=== PATIENT | male | born 1980 | race African-American/Black ===

== ENCOUNTER 2023-05-27 10:33 | Outpatient (AMB) | payer MEDICARE, MEDICAID, SELFPAY ==
[2023-05-27 10:58] VITALS: BP 140/88; PULSE 73; O2SAT 98; BMI 31.6
--- NOTE | 2023-05-27 10:58 | A.OFFPC_ITS ---
Vital Signs 05/27/23 10:58 Height 5 ft 4 in Weight 184 lb BMI 31.6 BP 140/88 H Blood Pressure Location Rt brachial Position Sitting Pulse 73 Pulse Source Pulse Oximeter Pulse Oximetry (%) 98 Oxygen Delivery Method Room Air Intake Visit Reasons: Est. Care Allergies No Known Allergies Allergy (Verified 05/27/23 11:09) Medication List - Last Reconciled 05/27/23 by GAVINO Patton olanzapine 15 mg PO BEDTIME Tobacco use date assessed: 05/27/23 Dental Screening Dental Screen Date: 05/27/23 Did you have a dental visit in the last 12 months?: No Did you have a dental problem in the last 6 months where you did not have access to dental care?: No Was dental information given to patient?: No HPI HPI Comments History of Present Illness Details Patient is a 42-year-old male who I am meeting for the 1st time. Patient states that he has not had a primary care provider in several years. He does have a psychiatric provider for bipolar disorder. The appointment today the patient is mildly hypertensive. Patient does not want medication at this time, would like to try to alter his diet and start exercising. Patient denies symptoms of headache, dizziness, nausea, vomiting, diarrhea, numbness. Will draw labs. PFSH Family History Mother Mental health disorder Diabetes type 2, controlled Social History (Updated 05/27/23 @ 11:11 by GAVINO Patton) Alcohol intake: current Comment: 4 beers per week Patient Tobacco Use Status: Former Tobacco user Tobacco use type: Cigar e-Cigarette/Vaping Use: Never Used service: No Current occupational status: disabled Current occupational exposures/hazards: No Cognitive needs: No Hearing needs: No Vision needs: No Questionnaire PHQ-9 Over the last 2 weeks, how often have you been bothered by any of the following problems? 1. Little interest or pleasure in doing things: not at all 2. Feeling down, depressed, or hopeless: several days 3. Trouble falling or staying asleep, or sleeping too much: not at all 4. Feeling tired or having little energy: not at all 5. Poor appetite or overeating: not at all 6. Feeling bad about yourself - or that you are a failure or have let yourself or your family down: not at all 7. Trouble concentrating on things, such as reading the newspaper or watching television: not at all 8. Moving or speaking so slowly that other people could have noticed. Or the opposite - being so fidgety or restless that you have been moving around a lot more than usual: not at all 9. Thoughts that you would be better off or of hurting yourself in some way: not at all Total score: 1 Depression Screening Interpretation: Negative Depression Screening Done: Yes 49057 - PHQ-9 Billing: Yes Source: Developed by Drs. Addison Ham, Emerald Arreola, Ray Varela and colleagues, with an educational osbaldo from [employer]. Thrive Questionnaire Date Thrive assessed: 05/27/23 I am a: Patient What is your living situation today?: I have a steady place to live Within the past 12 months, did the food you bought not last and you didn't have the money to get more?: Never true Within the past 12 months, did you worry whether your food would run out before you got money to buy more?: Never true Do you have trouble paying for medicines?: No Do you have trouble getting transportation to medical appointments?: No Do you have trouble paying your heating and electricity bill?: No Do you have trouble taking care of your child, family member or friend?: No Do you have trouble with day-to-day activities such as bathing, preparing meals, shopping, managing finances, etc.?: No Are you currently unemployed and looking for a job?: Yes Are you interested in more education?: No Please select the resources that you would like help with: Job search/training THRIVE Score: 0 AUDIT C Alcohol Use Questionnaire (AUDIT-C) 1. How often do you have a drink containing alcohol?: 2-3 times a week 2. How many drinks containing alcohol do you have on a typical day when you are drinking?: 1 or 2 3. How often do you have six or more drinks on one occasion?: Never Total Score: 3 SYED-7 AMB Questionnaire SYED-7 Date SYED - 7 assessed: 05/27/23 Feeling nervous, anxious, or on edge: 0 = Not at all Not being able to stop or control worryin = Not at all Worrying too much about different things: 0 = Not at all Trouble relaxin = Not at all Being so restless that it is hard to sit still: 0 = Not at all Becoming easily annoyed or irritable: 0 = Not at all Feeling afraid as if something awful might happen: 0 = Not at all Total SYED-7 score (0-4 normal; 5-9 mild; 10-14 moderate; 15-21 severe): 0 Source: Developed by Drs. Addison Ham, Emerald Arreola, Ray Varela and colleagues, with an educational osbaldo from [employer]. SYED-7 Assessment Billing SYED-7 Assessment Tool: SYED-7 Assessment 73791 Review of Systems Const All systems reviewed & are unremarkable except as noted in HPI and below Denies headache(s) Eyes Denies blurry vision ENT Denies vertigo, Denies dizziness and Denies headache(s) Musc Denies numbness and Denies tingling Neuro Denies vertigo, Denies dizziness, Denies headache(s), Denies numbness and Denies tingling Psych Denies anxiety, Denies mood swings, Denies homicidal ideation and Denies suicidal ideation Physical exam (Primary Care) Vital Signs: Last Vital Signs Pulse 73 05/27/23 10:58 BP 140/88 H 05/27/23 10:58 Pulse Ox 98 05/27/23 10:58 Oxygen Delivery Method Room Air 05/27/23 10:58 Care Plan Goal for BP management: Patient will take blood pressure measurements at home. BMI result Body Mass Index 31.6 Tobacco/Smoking Status: Tobacco use Status Tobacco use date assessed 05/27/23 05/27/23 11:03 Patient Tobacco Use Status Former Tobacco user 05/27/23 11:03 Tobacco use type Cigar 05/27/23 11:03 e-Cigarette/Vaping Use Never Used 05/27/23 11:03 Depression Screening Interpretation: Negative Thrive Assessment: Date of Thrive Assessment Date Thrive assessed 05/27/23 05/27/23 11:05 Const Other: Appearance: Alert.? Oriented X3.? No acute distress.? Head: Normocephalic, atraumatic, no step-offs or deformities Neck: Normal inspection.? Neck supple.? CVS: Normal heart rate and rhythm.? Pulses normal.? Respiratory: No respiratory distress.? Breath sounds normal.? Neuro: Oriented X 3.? No motor deficit.? No sensory deficit. CN 2-12 intact Assessment and Plan Assessment & Plan (1) Hypertension: Comment: Patient will take blood pressure measurements at home. Patient will try to improve diet and exercise Code(s): I10 - Essential (primary) hypertension Qualifiers: Hypertension type: primary hypertension Qualified Code(s): I10 - Essential (primary) hypertension (2) Bipolar 1 disorder, manic, mild: Comment: Patient is seeing a psychiatric provider that provides medication, olanzapine, for bipolar disorder. Patient states it feels like it is in control. He has community resources in case he has episodes of maria l or and is in crisis Code(s): F31.11 - Bipolar disorder, current episode manic without psychotic features, mild Plan: Take your medications as prescribed. If you were prescribed antibiotics today, it is important that you take your medication to their entirety, do not skip any doses, do not finish them early. Follow-up with your primary care provider this week. Return to the emergency department with new or worsening symptoms. Such as fevers, chills, chest pain, shortness of breath, nausea, vomiting, dizziness, headache, vision changes, lethargy In case of emergency call 911 Plan Follow-up physical exam 3 months. Orders: Orders Vitamin D 25-OH (D2 and D3) Today Z13.21 - Encounter for screening for nutritional disorder UA CC w/rflx Micro + Cult Today Z13.89 - Encounter for screening for other disorder TSH reflex Free T4 Today Z13.29 - Encounter for screening for other suspected endocrine disorder Comprehensive Met. Panel Today I10 - Essential (primary) hypertension Vitamin B6 Today Z13.21 - Encounter for screening for nutritional disorder Lipid Panel Today Z13.220 - Encounter for screening for lipoid disorders Complete Blood Count Auto Diff Today Z13.0 - Encounter for screening for diseases of the blood and blood-forming organs and certain disorders involving the immune mechanism PSA,Total (Free>4and<10) Today Z12.5 - Encounter for screening for malignant neoplasm of prostate Coding Level of Care Code Est Pt Level 3 (67111) Diagnoses Primary hypertension I10 Hypertension type: primary hypertension Bipolar 1 disorder, manic, mild F31.11 Additional Codes SYED-7 Assessment Billing - SYED-7 Assessment Tool: SYED-7 Assessment 12141 ([id number]) Time Spent (min) 22
== END 2023-05-27 14:43 | disposition home or self-care (01) ==
PROVIDERS: PCP Nurse Practitioner Family; Visit Provider Nurse Practitioner Primary Care
DX: I10 Essential (primary) hypertension (principal); F31.11 Bipolar disorder, current episode manic without psychotic features, mild
CPT/HCPCS: 99213

== ENCOUNTER 2023-06-19 09:24 | Outpatient (REF) | payer MEDICARE, MEDICAID, SELFPAY ==
[2023-06-19 10:20] LABS: MANUAL DIFF FLAG NO
[2023-06-19 10:30] LABS: Basophils Percent Auto 0.6 % (0-2); Eosinophils Absolute Auto 0.3 X10*3/uL (0.0-0.4); Eosinophils Percent Auto 4.7 % (0-4); Hematocrit 42.9 % (42.0-52.0); Hemoglobin 14.5 g/dl (14.0-18.0); Imm Gran Abs Auto 0.03 X10*3/uL (0.00-0.03); Imm Gran Pct Auto 0.5 % (0.0-0.4); Lymphocytes Absolute Auto 2.1 X10*3/uL (1.2-4.9); Lymphocytes Percent Auto 32.3 % (20-40); Mean Corpuscular HGB Conc 33.8 g/dl (31.0-36.0); Mean Corpuscular Hemoglobin 31.5 pg (27.0-33.0); Mean Corpuscular Volume 93.1 fL (80.0-98.0); Mean Platelet Volume 10.7 fL (9.4-12.4); Monocytes Absolute Auto 0.5 X10*3/uL (0.1-1.2); Monocytes Percent Auto 7.4 % (2-11); Neutrophils Absolute Auto 3.5 x10*3/uL (2.0-8.3); Neutrophils Percent Auto 54.5 % (45-73); Platelet Count 221 X10*3/uL (160-400); Red Blood Count 4.61 X10*6/uL (4.60-5.80); White Blood Count 6.3 X10*3/uL (4.8-10.8)
[2023-06-19 11:17] LABS: Alanine Aminotransferase 65 U/L (0-40); Albumin Level 4.4 g/dL (3.5-5.0); Anion Gap 11 (12-20); Aspartate Amino Transferase 36 U/L (5-37); Bilirubin Total 0.5 mg/dL (0.0-1.0); Blood Urea Nitrogen 7 mg/dL (9-16); Calcium 9.2 mg/dL (8.4-10.2); Carbon Dioxide 29 mmol/L (22-29); Chloride 104 mmol/L (96-108); Cholesterol 196 mg/dL (<200); Estimated Glomerular Filt Rate > 60; Glucose Random 123 mg/dL (60-115); HDL Cholesterol 46 mg/dL (>40); LDL Cholesterol Calculated 125 mg/dL (<100); Potassium 3.9 mmol/L (3.3-5.1); Sodium 140 mmol/L (135-145); Total Protein 7.6 g/dL (6.5-8.0); Triglycerides 125 mg/dL (<150)
[2023-06-19 11:18] LABS: PSA,Total (Free>4and<10) 0.27 ng/mL (0.00-4.00)
[2023-06-19 11:21] LABS: TSH reflex Free T4 1.45 uIU/mL (0.32-4.0)
[2023-06-19 11:36] LABS: Alkaline Phosphatase 63 U/L (39-117)
[2023-06-19 13:32] LABS: Appearance Urine Clear; Color Urine Yellow; Glucose Urine UA Negative (Negative); Leukocyte Esterase Urine Negative (Negative); Nitrite Urine Negative (Negative); Specific Gravity - Urine 1.015 (1.005-1.025); Urine Blood Negative (Negative); Urine Ketones Negative (Negative); Urine Protein Negative (Neg-Trace)
[2023-06-23 15:18] LABS: Vitamin D 25-OH, D2 <4 ng/mL; Vitamin D 25-OH, D3 8 ng/mL; Vitamin D 25-OH, Total 8 ng/mL (30-100)
== END 2023-06-19 09:25 | disposition home or self-care (01) ==
LOC: HO.HMGCLDS 09:24
PROVIDERS: PCP Nurse Practitioner Primary Care; Visit Provider Nurse Practitioner Primary Care
DX: Z12.5 Encounter for screening for malignant neoplasm of prostate (principal); Z13.89 Encounter for screening for other disorder; Z13.29 Encounter for screening for other suspected endocrine disorder; Z13.21 Encounter for screening for nutritional disorder; Z13.0 Encounter for screening for diseases of the blood and blood-forming organs and certain disorders involving the immune mechanism; Z13.220 Encounter for screening for lipoid disorders; I10 Essential (primary) hypertension
CPT/HCPCS: 36415; 80053; 80061; 81003; 82306; 84153; 84207; 84443; 85025

== ENCOUNTER 2023-06-26 11:15 | Outpatient (REF) | payer MEDICARE, MEDICAID, SELFPAY ==
[2023-06-26 14:06] LABS: Estimated Average Glucose 114 mg/dL; Hemoglobin A1c % 5.6 % (<6.0)
== END 2023-06-26 11:16 | disposition home or self-care (01) ==
LOC: HO.HMGCLDS 11:15
PROVIDERS: PCP Nurse Practitioner Primary Care; Visit Provider Nurse Practitioner Primary Care
DX: Z13.1 Encounter for screening for diabetes mellitus (principal)
CPT/HCPCS: 36415; 83036

== ENCOUNTER 2023-08-28 10:40 | Outpatient (AMB) | payer MEDICARE, MEDICAID, SELFPAY ==
--- NOTE | 2023-08-28 10:46 | A.OFFPC_ITS ---
Vital Signs 08/28/23 10:50 Height 5 ft 4 in Weight 181 lb BMI 31.1 BP 158/110 H Blood Pressure Location Lt brachial Position Sitting Pulse 89 Pulse Source Pulse Oximeter Pulse Oximetry (%) 97 Oxygen Delivery Method Room Air Intake Visit Reasons: Annual PE Intake Note: pt is here for annual PE. Allergies No Known Allergies Allergy (Verified 08/28/23 11:17) Medication List - Last Reconciled 08/28/23 by GAVINO Patton blood pressure monitor (Blood Pressure Kit) As directed olanzapine 15 mg PO BEDTIME Tobacco use date assessed: 08/28/23 Dental Screening Dental Screen Date: 08/28/23 HPI HPI Comments History of Present Illness Details Patient is a 43-year-old male in today for physical exam. Patient is up-to-date with PSA drawn. He does not know when his last Tdap immunization was, will try to obtain records from previous provider. He has a past medical history significant for: Hypertension: Patient will be started on losartan 25 mg p.o. daily. He will be ordered a blood pressure cuff to take measurements at home and record them. He will follow-up for blood pressure recheck in 2 weeks with nurse navigator. He denies any symptoms of dizziness, headache, chest pain, shortness a breath, nausea, vomiting, diarrhea. Bipolar disorder: Patient has establish care with Psychiatry, is currently utilizing olanzapine 50 mg p.o. at bedtime with good effect. Vitamin-D deficiency: Patient was asked to start 2000 units vitamin D3 per day 2 months prior. Patient will redraw today. Hyperlipidemia: Patient has started exercising, improving diet, is been taking fish oil supplement. PFSH Surgical History No pertinent past surgical history Family History Mother Mental health disorder Diabetes type 2, controlled Social History Alcohol intake: current Comment: 4 beers per week Patient Tobacco Use Status: Former Tobacco user Tobacco use type: Cigar e-Cigarette/Vaping Use: Never Used service: No Current occupational status: disabled Current occupational exposures/hazards: No Cognitive needs: No Hearing needs: No Vision needs: No Questionnaire Thrive Questionnaire Date Thrive assessed: 05/27/23 SYED-7 AMB Questionnaire SYED-7 Date SYED - 7 assessed: 05/27/23 Source: Developed by Drs. Addison Ham, Emerald Arreola, Ray Varela and colleagues, with an educational osbaldo from [employer]. Review of Systems Const All systems reviewed & are unremarkable except as noted in HPI and below Physical exam (Primary Care) Vital Signs: Last Vital Signs Pulse 89 08/28/23 10:50 BP 158/110 H 08/28/23 10:50 Pulse Ox 97 08/28/23 10:50 Oxygen Delivery Method Room Air 08/28/23 10:50 Care Plan Goal for BP management: Patient started on losartan 25 mg p.o. daily. Next steps: Follow-up in 2 weeks with nurse navigator for BP recheck BMI result Body Mass Index 31.1 Tobacco/Smoking Status: Tobacco use Status Tobacco use date assessed 08/28/23 08/28/23 10:49 Patient Tobacco Use Status Former Tobacco user 08/28/23 10:47 Tobacco use type Cigar 08/28/23 10:47 e-Cigarette/Vaping Use Never Used 08/28/23 10:47 Thrive Assessment: Date of Thrive Assessment Date Thrive assessed 05/27/23 08/28/23 10:47 Const Other: Appearance: Alert.? Oriented X3.? No acute distress.? Head: Normocephalic, atraumatic, no step-offs or deformities Eyes: Pupils equal, round and reactive to light.? ENT: Pharynx normal.?TM intact and pearly valdovinos, Neck: Normal inspection.? Neck supple.? CVS: Normal heart rate and rhythm.? Pulses normal.?S1 and S2. Respiratory: No respiratory distress.? Breath sounds normal.? Abdomen: Soft and nontender.? Skin: Skin warm and dry.? Normal skin color.? Normal skin turgor.? Extremities: No lower extremity edema.? No calf ttp. 5/5 strength to bilateral upper and lower extremities Back: No midline tenderness, no C-spine tenderness, full range of motion, no CVA tenderness bilaterally Neuro: Oriented X 3.? No motor deficit.? No sensory deficit. CN 2-12 intact Results Reviewed Results Reviewed: Sodium 140 135-145 mmol/L Potassium 3.9 3.3-5.1 mmol/L CL 104 96-108 mmol/L CO2 29 22-29 mmol/L Gap 11 L 12-20 BUN 7 L 9-16 mg/dL Creat 0.99 0.5-1.4 mg/dL EGFR > 60 NOTE: For -[place] individuals, multiply the result by 1.210. Chronic Kidney Disease: Estimated GFR < 60 mL/min/1.73m2 Severe Kidney Disease: Estimated GFR < 15 mL/mi n/1.73m2 Glucose, Random 123 H 60-115 mg/dL CA 9.2 8.4-10.2 mg/dL Total Bili 0.5 0.0-1.0 mg/dL AST (GOT) 36 5-37 U/L ALT (GPT) 65 H 0-40 U/L Protein, Total 7.6 6.5-8.0 g/dL Alb 4.4 3.5-5.0 g/dL Triglyceride 125 <150 mg/dL Desirable Triglyceride: less than 150 mg/dL Borderline High Triglyceride 150-199 mg/dL High Triglyceride: 200-499 mg/dL Very High Triglyceride: greater than or equal to 5OO mg/dL Cholesterol 196 <200 mg/dL Desirable Cholesterol: less than 200 mg/dL Borderline High Cholesterol: 200-239 mg/dL High Cholesterol: greater than 239 mg/dL LDL Calculated 125 H <100 mg/dL Desirable LDL: less than 100 mg/dL Near Optimal/Above Optimal LDL: 110-129 mg/dL Borderline High LDL: 130-159 mg/dL High LDL: 160-189 mg/dL Very High LDL: greater than or equal to 190 mg/dL HDL 46 >40 mg/dL Desirable HDL: greater than 40 mg/dL Note: This HDL assay may give artificially low results in patients with liver disease. Alk Phos 63 39-117 U/L TSH 1.45 0.32-4.0 uIU/mL Assessment and Plan Assessment & Plan (1) Physical exam: Comment: Patient is up-to-date with PSA drawn. He does not know when his last Tdap immunization was, will try to obtain records from previous provider. He has a past medical history significant for: Hypertension: Patient will be started on losartan 25 mg p.o. daily. He will be ordered a blood pressure cuff to take measurements at home and record them. He will follow-up for blood pressure recheck in 2 weeks with nurse navigator. He denies any symptoms of dizziness, headache, chest pain, shortness a breath, nausea, vomiting, diarrhea. Bipolar disorder: Patient has establish care with Psychiatry, is currently utilizing olanzapine 50 mg p.o. at bedtime with good effect. Vitamin-D deficiency: Patient was asked to start 2000 units vitamin D3 per day 2 months prior. Patient will redraw today. Hyperlipidemia: Patient has started exercising, improving diet, is been taking fish oil supplement. Code(s): Z00.00 - Encounter for general adult medical examination without abnormal findings (2) Bipolar 1 disorder, manic, mild: Comment: Patient is seeing a psychiatric provider that provides medication, olanzapine, for bipolar disorder. Patient states it feels like it is in control. He has community resources in case he has episodes of maria l or and is in crisis Code(s): F31.11 - Bipolar disorder, current episode manic without psychotic features, mild (3) Hypertension: Comment: Patient will take blood pressure measurements at home. Starting at 25 mg losartan p.o. daily. Code(s): I10 - Essential (primary) hypertension Qualifiers: Hypertension type: primary hypertension Qualified Code(s): I10 - Essential (primary) hypertension Plan: Draw labs for Plan Follow-up in 6-8 months. Orders: Orders Vitamin D 25-OH (D2 and D3) Today Z13.21 - Encounter for screening for nutritional disorder Comprehensive Met. Panel Today Z91.89 - Other specified personal risk factors, not elsewhere classified Complete Blood Count Auto Diff Today Z91.89 - Other specified personal risk factors, not elsewhere classified Medications: New losartan 25 mg PO DAILY 90 tabs 0RF Refilled blood pressure monitor (Blood Pressure Kit) As directed 1 ea 0RF Coding Level of Care Code Est Pt Prev Care 40-64y(43847) Diagnoses Physical exam Z00.00 Bipolar 1 disorder, manic, mild F31.11 Primary hypertension I10 Hypertension type: primary hypertension Time Spent (min) 28
[2023-08-28 10:50] VITALS: BP 158/110; PULSE 89; O2SAT 97; BMI 31.1
== END 2023-08-28 11:31 | disposition home or self-care (01) ==
PROVIDERS: PCP Nurse Practitioner Primary Care; Visit Provider Nurse Practitioner Primary Care
DX: Z00.00 Encounter for general adult medical examination without abnormal findings (principal); F31.11 Bipolar disorder, current episode manic without psychotic features, mild; I10 Essential (primary) hypertension
CPT/HCPCS: 99396

== ENCOUNTER → 2023-11-28 10:51 | Outpatient (BNVA) | payer MEDICARE, MEDICAID, SELFPAY | PROVIDERS: PCP Nurse Practitioner Primary Care ==

== ENCOUNTER → 2023-12-19 10:45 | Outpatient (BNVA) | payer MEDICARE, MEDICAID, SELFPAY | PROVIDERS: PCP Nurse Practitioner Primary Care ==

== ENCOUNTER → 2024-01-23 15:14 | Outpatient (BNVA) | payer MEDICARE, MEDICAID, SELFPAY | PROVIDERS: PCP Internal Medicine ==

== ENCOUNTER 2024-03-25 12:02 | Outpatient (REF) | payer MEDICARE, MEDICAID, SELFPAY ==
[2024-03-25 13:43] LABS: MANUAL DIFF FLAG NO
[2024-03-25 13:53] LABS: Basophils Absolute Auto 0.1 X10*3/uL (0.0-0.2); Basophils Percent Auto 0.6 % (0-2); Eosinophils Absolute Auto 0.3 X10*3/uL (0.0-0.4); Eosinophils Percent Auto 4.1 % (0-4); Hematocrit 40.3 % (42.0-52.0); Hemoglobin 13.6 g/dl (14.0-18.0); Imm Gran Abs Auto 0.04 X10*3/uL (0.00-0.03); Imm Gran Pct Auto 0.5 % (0.0-0.4); Lymphocytes Absolute Auto 1.8 X10*3/uL (1.2-4.9); Lymphocytes Percent Auto 23.5 % (20-40); Mean Corpuscular HGB Conc 33.7 g/dl (31.0-36.0); Mean Corpuscular Hemoglobin 31.9 pg (27.0-33.0); Mean Corpuscular Volume 94.6 fL (80.0-98.0); Mean Platelet Volume 10.1 fL (9.4-12.4); Monocytes Absolute Auto 0.7 X10*3/uL (0.1-1.2); Monocytes Percent Auto 8.4 % (2-11); Neutrophils Absolute Auto 4.9 x10*3/uL (2.0-8.3); Neutrophils Percent Auto 62.9 % (45-73); Platelet Count 347 X10*3/uL (160-400); Red Blood Count 4.26 X10*6/uL (4.60-5.80); Red Cell Distribution Width 12.8 % (11.0-16.0); White Blood Count 7.8 X10*3/uL (4.8-10.8)
--- OUTSIDE RECORDS SUMMARY | 2024-03-25 14:01 | XMS_ITS | Clinical Summary ---
Author Organization [facility] Address [address] [place] [address] Care Team Providers Care Transit Mixer Driver Name Role Phone Tavo Stark MD Primary Care Provider [phone] Surgical History Surgery Date Site/Laterality Comments OTHER SURGICAL HISTORY PROCEDURE: ---- OTHER ----; COMMENT: ? tissue removal from abd age 4 - ?umb hernia OTHER SURGICAL HISTORY 08/26/13 PROCEDURE: ---- OTHER ----; COMMENT: jaw fracture Family History Medical History Relation Name Comments Diabetes Father's side 1 Hypertension Mother Coronary artery disease Mother's side 1 Other cancer Mother's side 2 nothing in p articular however Relation Name Status Comments Father's side 1 Father's side 2 Mother Mother's side 1 Mother's side 2 Mother's side 3 Social History Tobacco Use Types Packs/Day Years Used Date Smoking Tobacco: Some Days Smokeless Tobacco: Never Alcohol Use Standard Drinks/Week Comments Yes 0 (1 standard drink = 0.6 oz pur e alcohol) Sex and Gender Information Value Date Recorded Sex Assigned at Not on file Gender Identity Not on file Sexual Orientation Not on file Obstetrics History Plan of Treatment Health Maintenance Due Date Last Done Comments Pneumococcal Vaccine: Pediat rics (0 to 5 Years) and At-Risk Patients (6 to 64 Years) (1 of 2 - PCV) 08/06/1985 DTaP,Tdap,and Td Vaccines (1 - Tdap) 08/06/1998 Hepatitis B Vaccines (1 of 3 - 19+ 3-dose series) 08/06/1998 Cholesterol Screening (Lipid Panel) 01/30/2022 Depression Screening 01/30/2022 HIV Screening 01/30/2022 Hepatitis C Screening 01/30/2022 Social Influencers of Health Screening 01/30/2022 COVID-19 Vaccine (1 - 2023-2 5 season) 2023 Influenza Vaccine (#1) 2023 HIB Vaccines Aged Out No longer eligi ble based on patient's age to complete this topic HPV Vaccines Aged Out No longer eligi ble based on patient's age to complete this topic Hepatitis A Vaccines Aged Out No long er eligible based on patient's age to complete this topic IPV Vaccines Aged Out No longer eligi ble based on patient's age to complete this topic MMR Vaccines Aged Out No longer eligi ble based on patient's age to complete this topic Meningococcal ACWY Vaccine Aged Out N o longer eligible based on patient's age to complete this topic RSV Immunization Patients Un allen 20 months Aged Out No longer eligible b ased on patient's age to complete this topic Varicella Vaccines Aged Out No longer eligible based on patient's age to complete this topic Care Teams Transit Mixer Driver Relationship Specialty Start Date End Date Tavo Stark MD PCP - General Internal Medicine 05/25/13
[2024-03-25 14:40] LABS: Alanine Aminotransferase 65 U/L (0-40); Albumin Level 4.8 g/dL (3.5-5.0); Alkaline Phosphatase 66 U/L (39-117); Anion Gap 9 (12-20); Aspartate Amino Transferase 37 U/L (5-37); Bilirubin Total 0.6 mg/dL (0.0-1.0); Blood Urea Nitrogen 10 mg/dL (9-16); Calcium 10.2 mg/dL (8.4-10.2); Carbon Dioxide 30 mmol/L (22-29); Chloride 106 mmol/L (96-108); Cholesterol 151 mg/dL (<200); Estimated Glomerular Filt Rate > 60; Glucose Fasting 90 mg/dL (60-99); HDL Cholesterol 29 mg/dL (>40); LDL Cholesterol Calculated 96 mg/dL (<100); Potassium 3.8 mmol/L (3.3-5.1); Sodium 141 mmol/L (135-145); Total Protein 8.5 g/dL (6.5-8.0); Triglycerides 133 mg/dL (<150)
[2024-03-25 15:01] LABS: Vitamin D 25-OH Total 17.6 ng/mL (>30)
== END 2024-03-25 12:03 | disposition home or self-care (01) ==
LOC: HO.HMGCLDS 12:02
PROVIDERS: PCP Internal Medicine; Visit Provider Internal Medicine
DX: I10 Essential (primary) hypertension (principal); F31.11 Bipolar disorder, current episode manic without psychotic features, mild
CPT/HCPCS: 36415; 80053; 80061; 82306; 85025

== ENCOUNTER 2024-04-01 11:17 | Outpatient (AMB) | payer MEDICARE, MEDICAID, SELFPAY ==
--- NOTE | 2024-04-01 12:04 | A.OFFPC_ITS ---
Vital Signs 04/01/24 12:06 04/01/24 12:50 04/01/24 12:51 Height 5 ft 4 in Weight 180 lb 4 oz BMI 30.9 BP 142/88 H 130/80 125/80 Blood Pressure Location Rt brachial Lt brachial Rt brachial Position Sitting Sitting Sitting Pulse 90 Pulse Source Pulse Oximeter Temp 98.1 F Temp Source Oral Pulse Oximetry (%) 97 Oxygen Delivery Method Room Air Intake Visit Reasons: 6-8 months/Transfer/HTN Intake Note: Pt is here today for 6 month follow up on Hypertension, Transfer from [facility]. Allergies No Known Allergies Allergy (Verified 04/01/24 12:37) Medication List - Last Reconciled 04/01/24 by Debbie Power MD amlodipine 5 mg PO QPM blood pressure monitor (Blood Pressure Kit) As directed losartan 100 mg PO DAILY olanzapine 15 mg PO BEDTIME Tobacco use date assessed: 04/01/24 Dental Screening Dental Screen Date: 04/01/24 Did you have a dental visit in the last 12 months?: No Did you have a dental problem in the last 6 months where you did not have access to dental care?: No Was dental information given to patient?: Patient has dentist HPI 6-8 months/Transfer/HTN HPI Details 43-year-old male, new to me, here today to establish with new PCP, has history of hypertension, bipolar disorder 1. Has been feeling well, with no complaints at present time. Compliant with taking his medications. He is currently being followed by Psychiatry for his bipolar disorder, currently stable controlled on present medication. [facility] Medical History Alcohol use disorder, mild, abuse Essential hypertension Bipolar disorder Vitamin D deficiency Surgical History No pertinent past surgical history Family History Mother Mental health disorder Diabetes type 2, controlled Social History Alcohol intake: current Comment: 4 beers per week Patient Tobacco Use Status: Former Tobacco user Tobacco use type: Cigar e-Cigarette/Vaping Use: Never Used service: No Current occupational status: disabled Current occupational exposures/hazards: No Cognitive needs: No Hearing needs: No Vision needs: No Questionnaire PHQ-9 Over the last 2 weeks, how often have you been bothered by any of the following problems? 1. Little interest or pleasure in doing things: not at all 2. Feeling down, depressed, or hopeless: not at all 3. Trouble falling or staying asleep, or sleeping too much: not at all 4. Feeling tired or having little energy: not at all 5. Poor appetite or overeating: not at all 6. Feeling bad about yourself - or that you are a failure or have let yourself or your family down: not at all 7. Trouble concentrating on things, such as reading the newspaper or watching television: not at all 8. Moving or speaking so slowly that other people could have noticed. Or the opposite - being so fidgety or restless that you have been moving around a lot more than usual: not at all 9. Thoughts that you would be better off or of hurting yourself in some way: not at all Total score: 0 Depression Screening Interpretation: Negative Depression Screening Done: Yes 90109 - PHQ-9 Billing: Yes Source: Developed by Drs. Addison Ham, Emerald Arreola, Ray Varela and colleagues, with an educational osbaldo from [employer]. Thrive Questionnaire Date Thrive assessed: 04/01/24 I am a: Patient What is your living situation today?: I have a steady place to live Within the past 12 months, did the food you bought not last and you didn't have the money to get more?: I choose not to answer this question Within the past 12 months, did you worry whether your food would run out before you got money to buy more?: I choose not to answer this question Do you have trouble paying for medicines?: No Do you have trouble getting transportation to medical appointments?: No Do you have trouble paying your heating and electricity bill?: No Do you have trouble taking care of your child, family member or friend?: No Do you have trouble with day-to-day activities such as bathing, preparing meals, shopping, managing finances, etc.?: No Are you currently unemployed and looking for a job?: No Are you interested in more education?: No Please select the resources that you would like help with: None Currently or been in a relationship where the following occur: I choose not to answer THRIVE Score: 0 AUDIT C Alcohol Use Questionnaire (AUDIT-C) 1. How often do you have a drink containing alcohol?: 2-3 times a week 2. How many drinks containing alcohol do you have on a typical day when you are drinking?: 1 or 2 3. How often do you have six or more drinks on one occasion?: Weekly Total Score: 6 Score Reviewed/Action Taken: Yes SYED-7 AMB Questionnaire SYED-7 Date SYED - 7 assessed: 04/01/24 Feeling nervous, anxious, or on edge: 0 = Not at all Not being able to stop or control worryin = Not at all Worrying too much about different things: 0 = Not at all Trouble relaxin = Not at all Being so restless that it is hard to sit still: 0 = Not at all Becoming easily annoyed or irritable: 0 = Not at all Feeling afraid as if something awful might happen: 0 = Not at all Total SYED-7 score (0-4 normal; 5-9 mild; 10-14 moderate; 15-21 severe): 0 Source: Developed by Drs. Addison Ham, Emerald Arreola, Ray bland nd colleagues, with an educational osbaldo from [employer]. SYED-7 Assessment Billing SYED-7 Assessment Tool: SYED-7 Assessment 13063 Review of Systems Const Denies body aches, Denies fatigue, Denies fever(s) and Denies headache(s) Eyes Denies change in vision ENT Denies dizziness, Denies headache(s) and Denies nasal congestion Card Denies chest pain, Denies lightheadedness, Denies palpitations and Denies dyspnea Resp Denies cough and Denies dyspnea GI Denies abdominal pain, Denies change in bowel habits and Denies heartburn Denies difficulty urinating, Denies dysuria and Denies urinary frequency Neuro Denies dizziness and Denies headache(s) Endo Denies fatigue, Denies polydipsia, Denies polyuria and Denies palpitations Aller/Immun Denies seasonal rhinorrhea Physical exam (Primary Care) Vital Signs: Last Vital Signs Temp 98.1 F 04/01/24 12:06 Pulse 90 04/01/24 12:06 BP 125/80 04/01/24 12:51 Pulse Ox 97 04/01/24 12:06 Oxygen Delivery Method Room Air 04/01/24 12:06 BMI result Body Mass Index 30.9 Tobacco/Smoking Status: Tobacco use Status Tobacco use date assessed 04/01/24 04/01/24 12:10 Patient Tobacco Use Status Former Tobacco user 04/01/24 12:05 Tobacco use type Cigar 04/01/24 12:05 e-Cigarette/Vaping Use Never Used 04/01/24 12:05 PHQ-9: PHQ-9 Score PHQ-9: Total score 0 04/01/24 12:38 Depression Screening Interpretation: Negative Thrive Assessment: Date of Thrive Assessment Date Thrive assessed 04/01/24 04/01/24 12:05 Currently or been in a relationship where the following occur: I choose not to answer Const General: no acute distress and alert Orientation/consciousness: patient oriented x3 HENMT Ears: external ears normal General nose exam: Normal external nose present and No nasal discharge present Mouth: Normal oral and palatal mucosa present, oropharynx normal and moist mucou s membranes Eyes General: appearance normal, both eyes and all related structures Conjunctivae: conjunctivae normal Sclerae: sclerae normal Pupils: Equal, round and reactive pupils present EOM: EOMs intact bilaterally Neck Neck: Yes full ROM, Yes no lymphadenopathy and Yes supple Resp Effort & Inspection: normal respiratory effort and able to speak in complete sentences Auscultation: clear to auscultation bilaterally Cardio Rate: regular rate Rhythm: regular rhythm Heart sounds: S1 normal heart sound present and S2 normal heart sound present GI Palpation (GI): Soft to palpation, nontender and no masses Auscultation: normal bowel sounds Neuro General: patient oriented x3, gait normal, tone normal, moves all extremities, Normal light touch and pain sensation and no focal motor deficits Cranial nerves: Yes CN's II-XII intact bilaterally and Yes Equal, round and reactive pupils present Cognition (Neuro): normal cognition Extrem General: Yes full ROM, Yes no joint enlargement, Yes no clubbing, cyanosis or e kandace and Yes no calf tenderness Psych Appearance: grossly normal and well kempt Mental Status: mental status grossly normal Speech and movement: Normal speech and movement present and Clear speech present Affect: normal affect Attitude: cooperative Thought process: Normal thought process present Results Reviewed Results Reviewed: Name: Jalen Ariza Age/Sex: 43/M : 1980 Unit#: [id number] Attend Dr: Debbie Power MD Re03/25/24 Status: DEP REF Location: [facility] Disch: SPEC : [id number] CALEB: 03/25/24 STATUS: COMP REQ : [id number] RECD: 03/25/[address]: Debbie Power MD COMP: 03/25/24 ENTERED: 03/25/24 [facility] DR: ORDERED: CBC Auto Diff Test Result Flag Reference WBC 7.8 4.8-10.8 X10* 3/uL RBC 4.26 L 4.60-5.80 X10*6/uL HGB 13.6 L 14.0-18.0 g/dl HCT 40.3 L 42.0-52.0 % MCV 94.6 80.0-98.0 fL MCH 31.9 27.0-33.0 pg MCHC 33.7 31.0-36.0 g/dl RDW 12.8 11.0-16.0 % PLT 347 # 160-400 X10*3/uL MPV 10.1 9.4-12.4 fL Neut Pct Auto 62.9 45-73 % ImGran Pct Auto 0.5 H 0.0-0.4 % Lymp Pct Auto 23.5 20-40 % Tripp Pct Auto 8.4 2-11 % Eos Pct Auto 4.1 H 0-4 % Baso Pct Auto 0.6 0-2 % NRBC Pct Auto 0.0 0.0-0.2 /100WBC ANC Neut Abs # 4.9 2.0-8.3 x10*3/uL ImGran Abs Auto 0.04 H 0.00-0.03 X10*3/uL Lymph Abs Auto 1.8 1.2-4.9 X10*3/uL Tripp Abs Auto 0.7 0.1-1.2 X10*3/uL Eos Abs Auto 0.3 0.0-0.4 X10*3/uL Baso Abs Auto 0.1 0.0-0.2 X10*3/uL NRBC Abs Auto 0.000 0.0-0.012 X10*3/uL Name: Jalen Ariza Age/Sex: 43/M : 1980 Unit#: [id number] Attend Dr: Debbie Power MD Re03/25/24 Status: DEP REF Location: [facility] Disch: SPEC : [id number] CALEB: 03/25/24 STATUS: COMP REQ : [id number] RECD: 03/25/24-[address]: Debbie Power MD COMP: 03/25/24 ENTERED: 03/25/[address]: ORDERED: CMP Fast, Lipid Panel, Vitamin D 25-OH Test Result Flag Reference Sodium 141 135-145 mmol/L Potassium 3.8 3.3-5.1 mmol/L CL 106 96-108 mmol/L CO2 30 H 22-29 mmol/L Gap 9 L 12-20 BUN 10 9-16 mg/dL Creat 1.28 0.5-1.4 mg/dL eGFR > 60 Chronic Kidney Disease: Estimated GFR < 60 mL/min/1.73m2 Severe Kidney Disease: Estimated GFR < 15 mL/min/1.73m2 FBS 90 60-99 mg/dL CA 10.2 # 8.4-10.2 mg/dL Total Bili 0.6 0.0-1.0 mg/dL AST (GOT) 37 5-37 U/L ALT (GPT) 65 H 0-40 U/L Protein, Total 8.5 H 6.5-8.0 g/dL Alb 4.8 3.5-5.0 g/dL Triglyceride 133 <150 mg/dL Desirable Triglyceride: less than 150 mg/dL Borderline High Triglyceride 150-199 mg/dL High Triglyceride: 200-499 mg/dL Very High Triglyceride: greater than or equal to 5OO mg/dL Cholesterol 151 <200 mg/dL Desirable Cholesterol: less than 200 mg/dL Borderline High Cholesterol: 200-239 mg/dL High Cholesterol: greater than 239 mg/dL LDL Calculated 96 <100 mg/dL Desirable LDL: less than 100 mg/dL Near Optimal/Above Optimal LDL: 110-129 mg/dL Borderline High LDL: 130-159 mg/dL High LDL: 160-189 mg/dL Very High LDL: greater than or equal to 190 mg/dL HDL 29 L >40 mg/dL Desirable HDL: greater than 40 mg/dL Note: This HDL assay may give artificially low results in patients with liver disease. Alk Phos 66 39-117 U/L Vit D 25-OH Tot 17.6 L >30 ng/mL Health Based Reference Values* < 20 ng/mL Deficient 20-30 ng/mL Insufficient > 30 ng/mL Sufficient Coding Level of Care Code Est Pt Level 4 (16571) Diagnoses Primary hypertension I10 Hypertension type: primary hypertension Vitamin D deficiency E55.9 Elevated liver enzymes R74.8 Bipolar disorder F31.9 Alcohol use disorder, mild, abuse F10.10 Additional Codes SYED-7 Assessment Billing - SYED-7 Assessment Tool: SYED-7 Assessment 61680 ([id number]) PHQ-9 - 87016 - PHQ-9 Billing: Yes ([id number]) Assessment & Plan Assessment & Plan (1) Hypertension: Comment: Patient will take blood pressure measurements at home. Starting at 25 mg losartan p.o. daily. Code(s): I10 - Essential (primary) hypertension Category: Medical Qualifiers: Hypertension type: primary hypertension Qualified Code(s): I10 - Essential (primary) hypertension Plan: Blood pressure at goal of less than 130/80. Continue with amlodipine 5 mg at night and losartan 100 mg 1 tablet in the morning.. Discuss results of recent labs which showed normal electrolytes renal function, mild elevation in his SGPT, fasting lipids are within normal limits. Reinforced importance of following a low sodium diet, getting regular exercise, avoidance of alcohol intake, and lowering stress levels. (2) Vitamin D deficiency: Code(s): E55.9 - Vitamin D deficiency, unspecified Category: Medical Plan: Has deficient vitamin-D level on recent labs done, prescription sent for vitamin-D 350 1000 units per capsule to take once a week for the next 3 months, and once finished taking the prescription, to start taking [id number] vitamin D3 at 2000 units daily (3) Elevated liver enzymes: Code(s): R74.8 - Abnormal levels of other serum enzymes Plan: Advised to stop alcohol intake (4) Bipolar disorder: Comment: Followed by Psychiatry currently on olanzapine Code(s): F31.9 - Bipolar disorder, unspecified Category: Medical Plan: Currently followed by psychiatry, currently on olanzapine (5) Alcohol use disorder, mild, abuse: Code(s): F10.10 - Alcohol abuse, uncomplicated Category: Medical Plan: Patient advised to cut back on intake of alcohol or quit altogether , noted SGPT elevations on recent labs done. Patient agreeable recommendation Medications: New cholecalciferol (vitamin D3) 1,250 mcg PO QWEEK 3 months 13 caps 0RF E55.9 - Vitamin D deficiency, unspecified
[2024-04-01 12:06] VITALS: BP 142/88; PULSE 90; TEMP 36.7; O2SAT 97; BMI 30.9
[2024-04-01 12:50] VITALS: BP 130/80
[2024-04-01 12:51] VITALS: BP 125/80
--- OUTSIDE RECORDS SUMMARY | 2024-04-01 13:38 | XMS_ITS | Clinical Summary ---
Author Organization [facility] Address [address] [place] [address] Care Team Providers Care Stonework Supervisor Name Role Phone Tavo Stark MD Primary Care Provider [phone] Surgical History Surgery Date Site/Laterality Comments OTHER [...] age to complete this topic Care Teams Stonework Supervisor Relationship Specialty Start Date End Date Tavo Stark MD PCP - General Internal Medicine 05/25/13
== END 2024-04-01 12:55 | disposition home or self-care (01) ==
PROVIDERS: PCP Nurse Practitioner Primary Care; Visit Provider Internal Medicine
DX: I10 Essential (primary) hypertension (principal); E55.9 Vitamin D deficiency, unspecified; R74.8 Abnormal levels of other serum enzymes; F31.9 Bipolar disorder, unspecified; F10.10 Alcohol abuse, uncomplicated

== ENCOUNTER → 2024-04-01 11:17 | Outpatient (BNVA) | payer MEDICARE, MEDICAID, SELFPAY | PROVIDERS: PCP Nurse Practitioner Primary Care; Visit Provider Internal Medicine | DX: I10 Essential (primary) hypertension (principal); E55.9 Vitamin D deficiency, unspecified; R74.8 Abnormal levels of other serum enzymes; F31.9 Bipolar disorder, unspecified; F10.10 Alcohol abuse, uncomplicated | CPT/HCPCS: 96127; 99212 ==

== ENCOUNTER 2024-09-16 07:38 | Outpatient (AMB) | payer MEDICARE, MEDICAID, SELFPAY ==
--- NOTE | 2024-09-16 07:48 | A.OFFPC_ITS ---
Vital Signs 09/16/24 08:01 Height 5 ft 4 in Weight 167 lb BMI 28.7 BP 118/82 Blood Pressure Location Rt brachial Position Sitting Pulse 74 Pulse Source Pulse Oximeter Temp 98.4 F Temp Source Oral Pulse Oximetry (%) 98 Oxygen Delivery Method Room Air Intake Visit Reasons: Annual PE Intake Note: Pt is here today for his PE Allergies No Known Allergies Allergy (Verified 09/16/24 08:25) Medication List - Last Reconciled 09/16/24 by Debbie Power MD amlodipine 5 mg PO QPM blood pressure monitor (Blood Pressure Kit) As directed cholecalciferol (vitamin D3) 1,250 mcg PO QWEEK 3 months losartan 100 mg PO DAILY olanzapine 15 mg PO BEDTIME Tobacco use date assessed: 09/16/24 Dental Screening Dental Screen Date: 09/16/24 Did you have a dental visit in the last 12 months?: No Did you have a dental problem in the last 6 months where you did not have access to dental care?: No Was dental information given to patient?: Patient has dentist HPI Annual PE HPI Details 44-year-old male with history of hyperte nsion, currently on disability for bipolar disorder followed at [facility] and stable on olanzapine, here today for his physical exam. Has been feeling well, with no complaints at present time. Blood pressure stable controlled on amlodipine and losartan, needs refills. Noted to have mild anemia on last labs done earlier this year, denies any abnormal bleeding, no blood in stool or urine, denies any heartburn issues, no dizziness lightheadedness, no chest pain or shortness of breath. Noted also to have vitamin-D deficiency was on high-dose vitamin-D supplements, will check levels again today [facility] Medical History Anemia Vitamin D deficiency Alcohol use disorder, mild, abuse Essential hypertension Bipolar disorder Surgical History No pertinent past surgical history Family History Mother Mental health disorder Diabetes type 2, controlled Social History Alcohol intake: current Comment: 4 beers per week Patient Tobacco Use Status: Former Tobacco user Tobacco use type: Cigar e-Cigarette/Vaping Use: Never Used service: No Current occupational status: disabled Current occupational exposures/hazards: No Cognitive needs: No Hearing needs: No Vision needs: No Questionnaire PHQ-9 Over the last 2 weeks, how often have you been bothered by any of the following problems? 1. Little interest or pleasure in doing things: not at all 2. Feeling down, depressed, or hopeless: not at all 3. Trouble falling or staying asleep, or sleeping too much: not at all 4. Feeling tired or having little energy: not at all 5. Poor appetite or overeating: not at all 6. Feeling bad about yourself - or that you are a failure or have let yourself or your family down: not at all 7. Trouble concentrating on things, such as reading the newspaper or watching television: not at all 8. Moving or speaking so slowly that other people could have noticed. Or the opposite - being so fidgety or restless that you have been moving around a lot more than usual: not at all 9. Thoughts that you would be better off or of hurting yourself in some way: not at all Total score: 0 Depression Screening Interpretation: Negative Depression Screening Done: Yes 37529 - PHQ-9 Billing: Yes Source: Developed by Drs. Addison Hma, Emerald Arreola, Ray Varela and colleagues, with an educational osbaldo from [employer]. Thrive Questionnaire Date Thrive assessed: 04/01/24 I am a: Patient What is your living situation today?: I have a steady place to live Within the past 12 months, did the food you bought not last and you didn't have the money to get more?: I choose not to answer this question Within the past 12 months, did you worry whether your food would run out before you got money to buy more?: I choose not to answer this question Do you have trouble paying for medicines?: No Do you have trouble getting transportation to medical appointments?: No Do you have trouble paying your heating and electricity bill?: No Do you have trouble taking care of your child, family member or friend?: No Do you have trouble with day-to-day activities such as bathing, preparing meals, shopping, managing finances, etc.?: No Are you currently unemployed and looking for a job?: No Are you interested in more education?: No Please select the resources that you would like help with: None Currently or been in a relationship where the following occur: I choose not to answer THRIVE Score: 0 AUDIT C Alcohol Use Questionnaire (AUDIT-C) 1. How often do you have a drink containing alcohol?: 2-3 times a week 2. How many drinks containing alcohol do you have on a typical day when you are drinking?: 1 or 2 3. How often do you have six or more drinks on one occasion?: Weekly Total Score: 6 Score Reviewed/Action Taken: Yes SYED-7 AMB Questionnaire SYED-7 Date SYED - 7 assessed: 09/16/24 Feeling nervous, anxious, or on edge: 0 = Not at all Not being able to stop or control worryin = Not at all Worrying too much about different things: 0 = Not at all Trouble relaxin = Not at all Being so restless that it is hard to sit still: 0 = Not at all Becoming easily annoyed or irritable: 0 = Not at all Feeling afraid as if something awful might happen: 0 = Not at all Total SYED-7 score (0-4 normal; 5-9 mild; 10-14 moderate; 15-21 severe): 0 Source: Developed by Drs. Addison Ham, Emerald Arreola, Ray Varela and colleagues, with an educational osbaldo from [employer]. SYED-7 Assessment Billing SYED-7 Assessment Tool: SYED-7 Assessment 91339 Review of Systems Const Denies body aches, Denies fatigue, Denies fever(s) and Denies headache(s) Eyes Reports blurry vision (Has corrective lenses, does not wear all the time, up-to-date with eye exam) and Denies change in vision ENT Denies dizziness, Denies headache(s), Denies nasal congestion, Denies neck pain and Denies disequilibrium Card Denies chest pain, Denies lightheadedness, Denies palpitations and Denies dyspnea Resp Denies cough and Denies dyspnea GI Denies abdominal pain, Denies change in bowel habits and Denies heartburn Denies difficulty urinating, Denies dysuria and Denies urinary frequency Musc Denies neck pain Skin/Breast Denies lesions and Denies rash Neuro Denies dizziness, Denies headache(s) and Denies disequilibrium Psych Details: Currently followed at [facility] [place] for bipolar disorder Reports no additional complaints Endo Denies fatigue, Denies polydipsia, Denies polyuria and Denies palpitations Cesario/Lymph Reports no additional complaints Aller/Immun Denies seasonal rhinorrhea Physical exam (Primary Care) Vital Signs: Last Vital Signs Temp 98.4 F 09/16/24 08:01 Pulse 74 09/16/24 08:01 BP 118/82 09/16/24 08:01 Pulse Ox 98 09/16/24 08:01 Oxygen Delivery Method Room Air 09/16/24 08:01 BMI result Body Mass Index 28.7 Tobacco/Smoking Status: Tobacco use Status Tobacco use date assessed 09/16/24 09/16/24 07:49 Patient Tobacco Use Status Former Tobacco user 09/16/24 07:49 Tobacco use type Cigar 09/16/24 07:49 e-Cigarette/Vaping Use Never Used 09/16/24 07:49 Depression Screening Interpretation: Negative Thrive Assessment: Date of Thrive Assessment Date Thrive assessed 04/01/24 09/16/24 07:49 Currently or been in a relationship where the following occur: I choose not to answer Advance Care Planning discussion: Completed/Scanned Date of discussion: 09/16/24 Who was present: Patient Forms completed: Health Care Proxy Time spent: 16-45 minutes Actual minutes spent: 2 Const General: no acute distress and alert Orientation/consciousness: patient oriented x3 HENMT Ears: external ears normal, TM's normal bilaterally and EAC's normal General nose exam: Normal external nose present and No nasal discharge present Mouth: Normal oral and palatal mucosa present, oropharynx normal and moist mucous membranes Eyes General: appearance normal, both eyes and all related structures Conjunctivae: conjunctivae normal Sclerae: sclerae normal Pupils: Equal, round and reactive pupils present EOM: EOMs intact bilaterally Neck Neck: Yes full ROM, Yes no lymphadenopathy and Yes supple Chest Chest palpation & inspection: normal inspection of the chest Resp Effort & Inspection: normal respiratory effort and able to speak in complete sentences Auscultation: clear to auscultation bilaterally Cardio Rate: regular rate Rhythm: regular rhythm Heart sounds: S1 normal heart sound present and S2 normal heart sound present GI Palpation (GI): Soft to palpation, nontender and no masses Auscultation: normal bowel sounds General: Yes no CVA tenderness Back/Spine/Pelvis Back: no CVA tenderness Skin Other: Tattoo on left arm Neuro General: patient oriented x3, gait normal, tone normal, moves all extremities, Normal light touch and pain sensation and no focal motor deficits Cranial nerves: Yes CN's II-XII intact bilaterally and Yes Equal, round and reactive pupils present Cognition (Neuro): normal cognition Extrem General: Yes full ROM, Yes no joint enlargement, Yes no clubbing, cyanosis or edema and Yes no calf tenderness Psych Appearance: grossly normal and well kempt Mental Status: mental status grossly normal Speech and movement: Normal speech and movement present and Clear speech present Affect: normal affect Attitude: cooperative Thought process: Normal thought process present Immunizations Boostrix Tdap 2.5 Lf unit-8 mcg-5 Lf/0.5 mL intramuscular syringe Performing Provider: Debbie Power MD Performing Location: [facility] [place] [facility] Administered by: Daylin Wagner CMA on 09/16/24 08:42 Dose Route Admin Location Dispensed Lot Number Expiration Date NDC Point Of Sale Associate 0.5 mL IM Left Deltoid 0.5 mL [id number] 09/16/24 18075-665-91 Condition One Total Dispensed Waste 0.5 mL 0 % VIS Given Date VIS Provided VIS Publication Date 09/16/24 Single Vaccine 20 Eligibility Eligibility Date Funding Source Not [facility] Eligible 09/16/24 Private Results Reviewed Results Reviewed: Name: Jalen Ariza Age/Sex: 43/M : 1980 Unit#: [id number] Attend Dr: Debbie Power MD Re03/25/24 Status: DEP REF Location: [facility] Disch: SPEC : [id number] CALEB: 03/25/24-1204 STATUS: COMP REQ : [id number] RECD: 03/25/24-[address]: Debbie Power MD COMP: 03/25/24-1501 ENTERED: 03/25/24-[address]: ORDERED: CMP Fast, Lipid Panel, Vitamin D 25-OH Test Result Flag Reference Sodium 141 135-145 mmol/L Potassium 3.8 3.3-5.1 mmol/L CL 106 96-108 mmol/L CO2 30 H 22-29 mmol/L Gap 9 L 12-20 BUN 10 9-16 mg/dL Creat 1.28 0.5-1.4 mg/dL eGFR > 60 Chronic Kidney Disease: Estimated GFR < 60 mL/min/1.73m2 Severe Kidney Disease: Estimated GFR < 15 mL/min/1.73m2 FBS 90 60-99 mg/dL CA 10.2 # 8.4-10.2 mg/dL Total Bili 0.6 0.0-1.0 mg/dL AST (GOT) 37 5-37 U/L ALT (GPT) 65 H 0-40 U/L Protein, Total 8.5 H 6.5-8.0 g/dL Alb 4.8 3.5-5.0 g/dL Triglyceride 133 <150 mg/dL Desirable Triglyceride: less than 150 mg/dL Borderline High Triglyceride 150-199 mg/dL High Triglyceride: 200-499 mg/dL Very High Triglyceride: greater than or equal to 5OO mg/dL Cholesterol 151 <200 mg/dL Desirable Cholesterol: less than 200 mg/dL Borderline High Cholesterol: 200-239 mg/dL High Cholesterol: greater than 239 mg/dL LDL Calculated 96 <100 mg/dL Desirable LDL: less than 100 mg/dL Near Optimal/Above Optimal LDL: 110-129 mg/dL Borderline High LDL: 130-159 mg/dL High LDL: 160-189 mg/dL Very High LDL: greater than or equal to 190 mg/dL HDL 29 L >40 mg/dL Desirable HDL: greater than 40 mg/dL Note: This HDL assay may give artificially low results in patients with liver disease. Alk Phos 66 39-117 U/L Vit D 25-OH Tot 17.6 L >30 ng/mL Health Based Reference Values* < 20 ng/mL Deficient 20-30 ng/mL Insufficient > 30 ng/mL Sufficient Coding Level of Care Code Est Pt Prev Care 40-64y(69305) Diagnoses Annual visit for general adult medical examination with abnormal findings Z00.01 Anemia, unspecified type D64.9 Anemia type: unspecified type Encounter for screening for malignant neoplasm of colon Z12.11 Bipolar disorder F31.9 Alcohol use disorder, mild, abuse F10.10 Essential hypertension I10 Vitamin D deficiency E55.9 Advanced directives, counseling/discussion Z71.89 Additional Codes Vital Signs *Quality* - Advance Care Planning discussion: Completed/Scanned ([id number]) Vital Signs *Quality* - Time spent: 16-45 minutes ([id number]) PHQ-9 - 55070 - PHQ-9 Billing: Yes ([id number]) SYED-7 Assessment Billing - SYED-7 Assessment Tool: SYED-7 Assessment 84858 ([id number]) Assessment & Plan Assessment & Plan (1) Annual visit for general adult medical examination with abnormal findings: Code(s): Z00.01 - Encounter for general adult medical examination with abnormal findings Plan: Will check appropriate labs. Continue with regular dental visit every 6 months and regular eye exams, at least every 2 years currently up-to-date went to [place] [facility].. Take adequate calcium in diet and vitamin-D 3 at 2000 IU per cap once a day, in addition to weight-bearing exercises to help maintain good muscle tone and weight control. Instructed to do self-testicular exam check for any mass. Has had COVID vaccines in the past, does not want to get flu shot, but Tdap given today. Referred for his initial screening colonoscopy. (2) Anemia: Code(s): D64.9 - Anemia, unspecified Category: Medical Qualifiers: Anemia type: unspecified type Qualified Code(s): D64.9 - Anemia, unspecified Plan: Ordered a repeat CBC and iron profile. Referred for screening colonoscopy (3) Encounter for screening for malignant neoplasm of colon: Code(s): Z12.11 - Encounter for screening for malignant neoplasm of colon Plan: Referred to [facility] [place] for her his initial screening colonoscopy (4) Bipolar disorder: Comment: Followed by Psychiatry currently on olanzapine Code(s): F31.9 - Bipolar disorder, unspecified Category: Medical Plan: Currently followed at [facility] on disability for his bipolar disorder, stable on olanzapine (5) Alcohol use disorder, mild, abuse: Code(s): F10.10 - Alcohol abuse, uncomplicated Category: Medical Plan: Alcohol risk education done today. Advised to stop alcohol intake (6) Essential hypertension: Code(s): I10 - Essential (primary) hypertension Category: Medical Plan: Blood pressure at goal of less than 130/80. Continue with losartan and amlodipine, refill sent. Reinforced importance of following a low sodium diet, getting regular exercise, and lowering stress levels. (7) Vitamin D deficiency: Code(s): E55.9 - Vitamin D deficiency, unspecified Category: Medical Plan: Will check vitamin-D low (8) Advanced directives, counseling/discussion: Code(s): Z71.89 - Other specified counseling Plan: Initiated the conversation about Advanced Directives. Advanced Directives help patients prepare for current and future decisions about their medical treatment and place of care. Discussed with patient that it is a process where a patients current condition and prognosis are reviewed, their wishes for information regarding their illness are elicited, and likely medical dilemmas are presented and options discussed. Healthcare proxy form completed today. The form can be amended as needed, reviewed yearly and make changes as needed Orders: Orders IRON PROFILE Today D64.9 - Anemia, unspecified TDaP Immunization Today Z23 - Encounter for immunization Referrals Gastroenterology Referral D64.9 - Anemia, unspecified, Z12.11 - Encounter for screening for malignant neoplasm of colon Medications: Refilled amlodipine 5 mg PO QPM 90 tabs 4RF losartan 100 mg PO DAILY 90 tabs 4RF
[2024-09-16 08:01] VITALS: BP 118/82; PULSE 74; TEMP 36.9; O2SAT 98; BMI 28.7
== END 2024-09-16 08:46 | disposition home or self-care (01) ==
LOC: HO.HMCC 07:39
PROVIDERS: PCP Internal Medicine; Visit Provider Internal Medicine
DX: Z00.00 Encounter for general adult medical examination without abnormal findings (principal); F31.9 Bipolar disorder, unspecified; D64.9 Anemia, unspecified; Z12.11 Encounter for screening for malignant neoplasm of colon; F10.10 Alcohol abuse, uncomplicated; I10 Essential (primary) hypertension; E55.9 Vitamin D deficiency, unspecified; Z71.89 Other specified counseling; Z23 Encounter for immunization

== ENCOUNTER 2024-09-16 07:38 | Outpatient (REF) | payer MEDICARE, MEDICAID, SELFPAY ==
--- OUTSIDE RECORDS SUMMARY | 2024-09-16 08:57 | XMS_ITS | Clinical Summary ---
Author Organization [facility] Address [address] [place] [address] Care Team Providers Care Social Welfare Clerk Name Role Phone Tavo Stark MD Primary Care Provider [phone] Surgical History Surgery Date Site/Laterality Comments OTHER [...] Recorded Sex Assigned at Not on file Legal Sex Male 11:44 AM EST Gender Identity Not on file Sexual Orientation Not on file Obstetrics History Plan of Treatment Health Maintenance Due Date Last Done Comments DTaP,Tdap,and Td Vaccines (1 - Tdap) 08/06/1998 Hepatitis B Vaccines (1 of 3 - 19+ 3-dose series) 08/06/1998 COVID-19 Vaccine (2023-2 5 season) 2023 Influenza Vaccine (#1) 2024 HIB Vaccines Aged Out No longer eligi [...] patient's age to complete this topic Meningococcal B Vaccine Aged Out No l onger eligible based on patient's age to complete this topic Pneumococcal Vaccine: Pediat rics (0 to 5 Years) and At-Risk Patients (6 to 49 Years) Aged Out No longer eligible b ased on patient's age to complete this topic RSV Immunization Patients Un allen 20 months Aged Out No longer eligible b ased on patient's age to complete this topic Varicella Vaccines Aged Out No longer eligible based on patient's age to complete this topic Care Teams Social Welfare Clerk Relationship Specialty Start Date End Date Tavo Stark MD PCP - General Internal Medicine 05/25/13
[2024-09-16 10:19] LABS: MANUAL DIFF FLAG NO
[2024-09-16 10:31] LABS: Hematocrit 40.2 % (42.0-52.0); Hemoglobin 13.7 g/dl (14.0-18.0); Imm Gran Abs Auto 0.02 X10*3/uL (0.00-0.03); Imm Gran Pct Auto 0.3 % (0.0-0.4); Lymphocytes Absolute Auto 2.2 X10*3/uL (1.2-4.9); Mean Corpuscular HGB Conc 34.1 g/dl (31.0-36.0); Mean Corpuscular Hemoglobin 31.8 pg (27.0-33.0); Mean Corpuscular Volume 93.3 fL (80.0-98.0); NRBC Abs Auto 0.000 X10*3/uL (0.0-0.012); NRBC Pct Auto 0.0 /100WBC (0.0-0.2); Platelet Count 264 X10*3/uL (160-400); Red Blood Count 4.31 X10*6/uL (4.60-5.80); White Blood Count 7.4 X10*3/uL (4.8-10.8)
[2024-09-16 11:09] LABS: Alanine Aminotransferase 90 U/L (0-40); Albumin Level 5.0 g/dL (3.5-5.0); Alkaline Phosphatase 62 U/L (39-117); Anion Gap 10 (12-20); Aspartate Amino Transferase 46 U/L (5-37); Blood Urea Nitrogen 8 mg/dL (9-16); Calcium 9.4 mg/dL (8.4-10.2); Carbon Dioxide 28 mmol/L (22-29); Chloride 107 mmol/L (96-108); Cholesterol 179 mg/dL (<200); Estimated Glomerular Filt Rate > 60; HDL Cholesterol 41 mg/dL (>40); Iron 88 mcg/dL (45-160); Percent Iron Saturation 28 % (15-50); Potassium 3.7 mmol/L (3.3-5.1); Sodium 141 mmol/L (135-145); Total Iron Binding Capacity 311 mcg/dL (228-428); Total Protein 8.0 g/dL (6.5-8.0); Triglycerides 135 mg/dL (<150); Unsaturated Iron Binding 223 ug/dL
[2024-09-16 11:27] LABS: Folate 7.6 ng/mL (> or = 4.0); Vitamin B12 424 pg/mL (200-900)
== END 2024-09-16 07:39 | disposition home or self-care (01) ==
LOC: HO.HMGCLDS 07:38
PROVIDERS: PCP Internal Medicine; Visit Provider Internal Medicine
DX: Z00.01 Encounter for general adult medical examination with abnormal findings (principal); Z23 Encounter for immunization; D64.9 Anemia, unspecified; F31.9 Bipolar disorder, unspecified; F10.10 Alcohol abuse, uncomplicated; I10 Essential (primary) hypertension; E55.9 Vitamin D deficiency, unspecified; Z79.899 Other long term (current) drug therapy; Z71.89 Other specified counseling; Z13.30 Encounter for screening examination for mental health and behavioral disorders, unspecified; Z13.31 Encounter for screening for depression
CPT/HCPCS: 36415; 80053; 80061; 82306; 82607; 82746; 83540; 84425; 85025; 90471; 90715; 96127; 99396; 99497